=== PATIENT | female | born 1960 | race Caucasian/White ===

== ENCOUNTER 2018-11-25 12:30 | Emergency (ER) | payer OTHER ==
[~2018-11-25] VITALS: Ht 160 cm; Wt 75.0 kg
[~2018-11-25 12:30] MED LIST: AMLO-498 PO; DILT240C79 PO; EMPA10TA PO; ESCI20TA38 PO; GABA100C14 PO; GABA400C14 PO; GLIM4TAB PO; INSU100I33 SC; INTE0.3K3 SQ; NORT25CA PO; PRAV20TA63 PO; SULF1TAB31 PO
[2018-11-25 12:34] VITALS: Ht 160 cm; Wt 75.0 kg
--- NOTE | 2018-11-25 12:58 | ERD ---
ER Documentation Chief Complaint Chief Complaint BIB RA FOR EVAL OF PALPITATIONS. SVT IN FIELD. [facility] ON [facility]RI[facility] HPI History of diabetes and hypertension and MS. Patient has had multiple episodes of palpitations in the past with no clear diagnosis was at the dining service supervisor office today when she had palpitations and lightheadedness was found to be in SVT EMS was called and after one vagal maneuver her rhythm went back to sinus rhythm. Patient now feels better has no chest pain, no shortness of breath, no lightheadedness. No nausea or vomiting. Is on unknown antibiotic for a UTI for the past 2 days. Denies any fever or other infectious symptoms. ROS All systems reviewed and are negative except as per history of present illness. Allergies Allergies: Coded Allergies: morphine (Verified Allergy, Unknown, 11/25/18) Uncoded Allergies: PENICILLIN (Allergy, Unknown, 11/25/18) PMhx/Soc Medical and Surgical Hx: pt denies Medical Hx (MS, diabetes, hypertension) History of Surgery: Yes (HYSTERECTOMY) Anesthesia Reaction: No Hx Neurological Disorder: No Hx Respiratory Disorders: No Hx Cardiac Disorders: Yes (HTN) Hx Psychiatric Problems: No Hx Miscellaneous Medical Probl: No Hx Alcohol Use: No Hx Substance Use: No Hx Tobacco Use: No Smoking Status: Never smoker Physical Exam Vitals Vital Signs Date Temp Pulse Resp B/P (MAP) Pulse Ox O2 O2 Flow FiO2 Time Delivery Rate 11/25/18 89 18 125/92 100 Room Air 14:06 (103) 11/25/18 97.8 109 17 146/78 99 12:34 (100) Physical Exam Const: No acute distress Head: Atraumatic Eyes: Normal Conjunctiva ENT: Normal External Ears, Nose and Mouth. Neck: Full range of motion. No meningismus. Resp: Clear to auscultation bilaterally Cardio: Regular tachycardic and rhythm, no murmurs Abd: Soft, non tender, non distended. Normal bowel sounds Skin: No petechiae or rashes Back: No midline or flank tenderness Ext: No cyanosis, or edema Neur: Awake and alert Psych: Normal Mood and Affect Result Diagram: 11/25/18 1300 11/25/18 1300 Results 24 hrs Laboratory Tests Test 11/25/18 12:55 11/25/18 13:00 Magnesium Level 1.8 mg/dl White Blood Count 7.4 10^3/ul Red Blood Count 6.03 10^6/ul Hemoglobin 11.4 g/dl Hematocrit 38.5 % Mean Corpuscular Volume 63.8 fl Mean Corpuscular Hemoglobin 18.9 pg Mean Corpuscular Hemoglobin Concent 29.6 g/dl Red Cell Distribution Width 15.8 % Platelet Count 234 10^3/UL Mean Platelet Volume 9.7 fl Immature Granulocytes % 0.400 % Neutrophils % 73.4 % Lymphocytes % 18.8 % Monocytes % 6.6 % Eosinophils % 0.4 % Basophils % 0.4 % Nucleated Red Blood Cells % 0.0 /100WBC Immature Granulocytes # 0.030 10^3/ul Neutrophils # 5.4 10^3/ul Lymphocytes # 1.4 10^3/ul Monocytes # 0.5 10^3/ul Eosinophils # 0.0 10^3/ul Basophils # 0.0 10^3/ul Nucleated Red Blood Cells # 0.0 10^3/ul Sodium Level 141 mmol/L Potassium Level 3.9 mmol/L Chloride Level 104 mmol/L Carbon Dioxide Level 25 mmol/L Anion Gap 12 Blood Urea Nitrogen 12 mg/dl Creatinine 0.64 mg/dl Est Glomerular Filtrat Rate mL/min > 60 mL/min Glucose Level 292 mg/dl Calcium Level 9.1 mg/dl Total Bilirubin 0.7 mg/dl Direct Bilirubin 0.00 mg/dl Indirect Bilirubin 0.7 mg/dl Aspartate Amino Transf (AST/SGOT) 22 IU/L Alanine Aminotransferase (ALT/SGPT) 25 IU/L Alkaline Phosphatase 87 IU/L Troponin I < 0.012 ng/ml Total Protein 6.6 g/dl Albumin 4.0 g/dl Globulin 2.60 g/dl Albumin/Globulin Ratio 1.53 Procedures/MDM Patient evaluated for SVT in the field converted after vagal maneuver has been normal sinus rhythm since being in the ER. Labs normal. Spoke with dining service supervisor Dr. Díaz bedside echo in the ER was with normal EF we will discharge patient on diltiazem 120 daily follow-up in his clinic. ECG Time: 1255 Ventricular Rate: 94 Rhythm: normal sinus rhythm. ST Segments: without evidence of depressions or elevations Intervals: without evidence of AV block, new BBB, long QT, Brugada No evidence of delta wave. Departure Diagnosis: Primary Impression: SVT (supraventricular tachycardia) Condition: Stable Referrals: Rustam Díaz MICHAEL MD Nov 25, 2018 12:58
[2018-11-25 16:11] VITALS: BP 135/84; PULSE 81; RESP 20
--- NOTE | 2018-11-25 17:36 | CONS ---
Assessment/Plan Assessment/Plan Hospital Course (Demo Recall) SVT DM HTN check labs, including lytes echo If normal EF, Cardizem 120mg daily Consultation Date/Type/Reason Admit Date/Time Type of Consult Cardiology Reason for Consultation SVT Date/Time of Note DATE: 11/25/18 TIME: 17:32 Hx of Present Illness Pt with office visit scheduled for echo. Had palpitations. Found to be in SVT. EMS called, responded to vasovagal maneuvers. C/o palpitations 3-4/month. No cp, +sob when having palpitations 12 point ROS with all pertinent pos and neg listed above and all else is neg Past Medical History Medical History: diabetes, hypertension Home Meds Active Scripts Diltiazem Hcl* (Cardizem CD*) 240 Mg Cap.sr.24h, 120 MG PO DAILY for svt, #30 CAP Prov:FARHAD DOWD MD 11/25/18 Reported Medications Gabapentin* (Gabapentin*) 400 Mg Capsule, 400 MG PO NEEDED, #90 CAP 11/25/18 Gabapentin* (Gabapentin*) 100 Mg Capsule, 100 MG PO NEEDED, #90 CAP 11/25/18 Glimepiride* (Glimepiride*) 4 Mg Tablet, 8 MG PO WITH BREAKFAST, TAB 11/25/18 Pravastatin Sodium* (Pravastatin Sodium*) 20 Mg Tablet, 20 MG PO HS, TAB 11/25/18 Empagliflozin (Jardiance) 10 Mg Tablet, 10 MG PO DAILY, TAB 11/25/18 Escitalopram Oxalate* (Escitalopram Oxalate*) 20 Mg Tablet, 20 MG PO DAILY, #30 TAB 11/25/18 Nortriptyline Hcl* (Nortriptyline Hcl*) 25 Mg Capsule, 25 MG PO HS, CAP 11/25/18 Insulin Glargine,Hum.rec.anlog (Basaglar Kwikpen U-100) 100 Unit/1 Ml Insuln.pen, 18 UNIT SC QHS, EA 11/25/18 Amlodipine Bes/Olmesartan Med (Amlodipine-Olmesartan 10-40 mg) 1 Each Tablet, 1 EACH PO DAILY, TAB 11/25/18 Interferon Beta-1B (Betaseron) 0.3 Mg Kit, 0.3 MG SQ Q OTHER DAY, KIT 11/25/18 Sulfamethoxazole/Trimethoprim* (Bactrim Ds* Tablet) 1 Each Tablet, 1 TAB PO BID, TAB START DATE 11/23/18,FOR 7 DAYS 11/25/18 Allergies: Coded Allergies: morphine (Verified Allergy, Unknown, 11/25/18) Uncoded Allergies: PENICILLIN (Allergy, Unknown, 11/25/18) Family History Significant Family History: no pertinent family hx Social History Smoking Status: Never smoker Exam/Review of Systems Vital Signs Vitals Vital Signs Date Temp Pulse Resp B/P (MAP) Pulse Ox O2 O2 Flow FiO2 Time Delivery Rate 11/25/18 81 20 135/84 Room Air 16:11 (101) 11/25/18 100 14:06 11/25/18 97.8 12:34 Exam Constitutional: alert, oriented, well developed Head: normocephalic Respiratory: clear to auscultation, normal air movement Cardiovascular: regular rate and rhythm (s1s2) Gastrointestinal: soft, non-tender, bowel sounds Extremities: edema (no) Labs Result Diagram: 11/25/18 1300 11/25/18 1300 Results 24hrs Laboratory Tests Test 11/25/18 12:55 11/25/18 13:00 Magnesium Level 1.8 White Blood Count 7.4 Red Blood Count 6.03 H Hemoglobin 11.4 L Hematocrit 38.5 Mean Corpuscular Volume 63.8 L Mean Corpuscular Hemoglobin 18.9 L Mean Corpuscular Hemoglobin Concent 29.6 L Red Cell Distribution Width 15.8 H Platelet Count 234 Mean Platelet Volume 9.7 Immature Granulocytes % 0.400 Neutrophils % 73.4 Lymphocytes % 18.8 Monocytes % 6.6 Eosinophils % 0.4 Basophils % 0.4 Nucleated Red Blood Cells % 0.0 Immature Granulocytes # 0.030 Neutrophils # 5.4 Lymphocytes # 1.4 Monocytes # 0.5 Eosinophils # 0.0 Basophils # 0.0 Nucleated Red Blood Cells # 0.0 Sodium Level 141 Potassium Level 3.9 Chloride Level 104 Carbon Dioxide Level 25 Anion Gap 12 Blood Urea Nitrogen 12 Creatinine 0.64 Est Glomerular Filtrat Rate mL/min > 60 Glucose Level 292 H Calcium Level 9.1 Total Bilirubin 0.7 Direct Bilirubin 0.00 Indirect Bilirubin 0.7 Aspartate Amino Transf (AST/SGOT) 22 Alanine Aminotransferase (ALT/SGPT) 25 Alkaline Phosphatase 87 Troponin I < 0.012 Total Protein 6.6 Albumin 4.0 Globulin 2.60 Albumin/Globulin Ratio 1.53 Imaging Imaging ECG from office SVT @ [address] @ 104, non-specific ST abn Farhad Díaz DO Nov 25, 2018 17:36
--- NOTE | 2018-11-25 17:40 | RADRPT ---
Echocardiogram Report Patient Name: MARCELLUS TELLOatient ID: [id number] : 1960 (58y 1m)Study Date: 11/25/2018 1:46:32 PM Gender: FAccession #: [id number] Tech: Jenae Davis MARY Location: [facility] Ref.Physician: RUSTAM DÍAZ Height(Cm): BSA: Weight(Kg): Quality: AdequateOrder Physician: RUSTAM DÍAZ Account #: Procedures: Echocardiographic Report: Transthoracic echocardiogram with complete 2D, M-Mode, and doppler examination. Indications: SVT. Measurements: 2D/M Mode Doppler Measurement Value Normal Range Measurement Value Normal Range LVIDd 2D 3.5 [ 3.8 - 5.2 ] cm AV Peak Anjel 1.2 [ 100.0 - 170.0 ] cm/sec LVIDs 2D 2.1 [ 2.2 - 3.5 ] cm AV Peak PG 6.0 [ 2.0 - 9.0 ] mmHg LVPWd 2D 1.0 [ 0.6 - 0.9 ] cm LVOT Peak Anjel 0.9 [ 70.0 - 110.0 ] cm/sec IVSd 2D 1.2 [ 0.6 - 0.9 ] cm LVOT Peak PG 3.0 [ 2.0 - 6.0 ] mmHg AoR Diam 2D 2.8 [ 2.3 - 3.1 ] cm MV E Peak Anjel 0.6 [ 60.0 - 130.0 ] cm/sec EDV 2D 52.3 [ 46.0 - 106.0 ] ml MV A Peak Anjel 0.9 [ 100.0 - 120.0 ] cm/sec ESV 2D 14.6 [ 14.0 - 42.0 ] ml MV E/A 0.6 [ 0.8 - 1.5 ] ratio EF 2D 72.1 [ 54.0 - 74.0 ] percent MV Decel Time 123 [ 104 - 258 ] msec LA Dimen 2D 3.2 [ 2.7 - 3.8 ] cm Lat E` Anjel 0.1 [ 10.0 - 15.0 ] cm/sec Lateral E/E` 8.3 [ 1.0 - 2.0 ] ratio Med E` Anjel 0.1 cm/sec MV E/A 0.6 [ 0.8 - 1.5 ] ratio Findings: Left Ventricle: Normal left ventricular systolic function. Normal left ventricular cavity size. Mild concentric left ventricular hypertrophy. Ejection fraction is visually estimated at 65 %. Tissue Doppler/Mitral Doppler indices are consistent with impaired relaxation (Stage I diastolic dysfunction). Right Ventricle: Normal right ventricular size. Normal right ventricular systolic function. Left Atrium: The left atrium is normal in size. Right Atrium: The right atrium is normal in size. Mitral Valve: Normal appearance of the mitral valve. Mild mitral annular calcification. Trace mitral regurgitation. Aortic Valve: Normal appearance of the aortic valve. No significant aortic stenosis or insufficiency. Tricuspid Valve: Normal appearance and function of the tricuspid valve with trace physiologic regurgitation. Pulmonic Valve: Normal pulmonic valve appearance. Pericardium: Normal pericardium with no significant pericardial effusion. Aorta: Normal aortic root. IVC: Normal size and normal respiratory collapse consistent with normal right atrial pressure. Conclusions: Normal left ventricular systolic function. Normal left ventricular cavity size. Mild concentric left ventricular hypertrophy. Ejection fraction is visually estimated at 65 %. Tissue Doppler/Mitral Doppler indices are consistent with impaired relaxation (Stage I diastolic dysfunction). Normal right ventricular size. Normal right ventricular systolic function. No significant valvular stenosis or regurgitation seen. Normal pericardium with no significant pericardial effusion. Electronically Signed By: Rustam Díaz 2018-11-25 17:39:19 PDT
== END 2018-11-25 16:12 | disposition home or self-care (01) ==
LOC: E/R 12:30
DX: I47.1 Supraventricular tachycardia (principal); I10 Essential (primary) hypertension; E11.9 Type 2 diabetes mellitus without complications
CPT/HCPCS: 71045; 80053; 83735; 84484; 85025; 93005; 93306; Z7502